=== PATIENT | female | born 1935 | race Caucasian/White ===

== ENCOUNTER 2022-09-01 15:18 | Inpatient (IN) | payer MEDICARE, OTHER ==
[~2022-09-01] VITALS: Ht 157.5 cm; Wt 45.4 kg
[2022-09-01] MEDS ORDERED: IV NORMAL SALINE 1000 ML BAG IV ONE ×2 (15:30→16:45)
[2022-09-01 16:02] LABS: HEMATOCRIT 31.2 % (31.2-41.9); MEAN CORPUSCULAR HEMOGLOBIN 30.4 uug (24.7-32.8); MEAN CORPUSCULAR VOLUME 92.4 fL (75.5-95.3); PLATELET COUNT (AUTO) 213 K/uL (179-408)
[2022-09-01] MEDS ORDERED: CARBIDOPA-LEVO PO (16:06)
[2022-09-01 16:26] LABS: CARBON DIOXIDE 29 mmol/L (21-32); CHLORIDE 100 mmol/L (98-107); CREATININE 1.4 mg/dL (0.6-1.3); GLUCOSE 142 mg/dL (74-106); POTASSIUM 4.4 mmol/L (3.5-5.1); UREA NITROGEN, BLOOD 30 mg/dL (7-18)
[2022-09-01 16:35] LABS: *BILIRUBIN,URIN NEGATIVE (NEGATIVE); *BLOOD, URINE NEGATIVE (NEGATIVE); *CLARITY,URINE CLEAR (CLEAR); *COLOR,URINE YELLOW (YELLOW); *KETONES,URINE TRACE (NEGATIVE); LEUKOCYTE ESTERASE ,URINE NEGATIVE (NEGATIVE); NITRITE, URINE NEGATIVE (NEGATIVE); UGLUCOSE NEGATIVE (NEGATIVE)
[2022-09-01 16:39] LABS: ALANINE AMINOTRANSFERASE 12 U/L (14-59); ALKALINE PHOSPHATASE 107 U/L (50-136); ASPARTATE AMINOTRANSFERASE 23 U/L (15-37); BILIRUBIN,DIRECT 0.1 mg/dL (0.0-0.2); BILIRUBIN,TOTAL 0.6 mg/dL (0.2-1.0); TOTAL PROTEIN, SERUM 6.7 g/dL (6.4-8.2)
[2022-09-01 16:50] LABS: BACTERIA,URINE FEW /HPF (NONE SEEN); RBC,URINE 0-3 /HPF (0-3)
[2022-09-01 16:51] LABS: SQUAMOUS EPITHELIAL CELL,UR MODERATE /HPF (NONE SEEN)
[2022-09-01] MEDS ORDERED: CEFTRIAXONE 1 G VIAL ONE (16:56)
[2022-09-01] MEDS ORDERED: CEFTRIAXONE 1 G in IV DEXTROSE 5% 50 ML IV ONE (17:00)
[2022-09-01 19:33] VITALS: BP 150/82
[2022-09-01] MEDS ORDERED: CARBIDOPA/LEVODOPA 25-100MG TABLET PO SCH (21:30)
[2022-09-01] MEDS ORDERED: IV LACTATED RINGERS SOLUTION 1,000 ML IV PRN (21:45)
[2022-09-01] MEDS ORDERED: ACETAMINOPHEN 325 MG TABLET PO PRN (21:45)
[2022-09-01] MEDS ORDERED: ONDANSETRON 4 MG/2 ML VIAL IV PRN (21:45)
[2022-09-01] MEDS ORDERED: REMEDY ESSENTIAL ZINC PASTE 113 GM TP PRN (21:45)
[2022-09-02 00:26] VITALS: BP 144/71
[2022-09-02] MEDS: CARBIDOPA/LEVODOPA 25-100MG TABLET PO SCH ×3 (03:13→12:15)
[2022-09-02 07:02] LABS: HEMATOCRIT 29.3 % (31.2-41.9); MEAN CORPUSCULAR HEMOGLOBIN 31.1 uug (24.7-32.8); MEAN CORPUSCULAR VOLUME 92.2 fL (75.5-95.3); PLATELET COUNT (AUTO) 90 K/uL (179-408)
[2022-09-02 07:17] LABS: BILIRUBIN,TOTAL 0.4 mg/dL (0.2-1.0); CREATININE 1.1 mg/dL (0.6-1.3); MAGNESIUM 1.5 mg/dL (1.8-2.4); PHOSPHOROUS 2.9 mg/dL (2.5-4.9); TOTAL PROTEIN, SERUM 6.3 g/dL (6.4-8.2)
[2022-09-02 07:24] LABS: THYROID STIMULATING HORMONE 2.156 mIU/mL (0.358-3.740)
--- NOTE | 2022-09-02 09:50 | NUR ---
PATIENTS HERE AND AT THE BEDSIDE TO SEE HIS AND PATIENT IS EXPRESSING DESIRE TO GO HOME AT THIS TIME INFORMED HIM THAT THE DOCTOR IS COMING TO SEE HER SOON BUT IF HE IS NOT WILLING TO WAIT HAS THE OPTION OF SIGNING HER OUT AGAINST MEDICAL ADVISE BUT HE STATED THAT HE WILL WAIT FOR THE DOCTOR.
[2022-09-02] MEDS: MAGNESIUM SULFATE/D5W 100 ML IV SCH ×2 (09:54→10:54)
--- NOTE | 2022-09-02 11:15 | NUR ---
DR TANGELA OTTO HERE SEEN PATIENT WITH ORDER FOR ORTHOSTATIC BLOOD PRESSURE AND NOTED.
[2022-09-02 11:18] VITALS: BP 107/50
[2022-09-02 11:41] VITALS: BP_SYST 107; BP_SYST 112; BP_SYST 129; BP_DIAS 50; BP_DIAS 61; BP_DIAS 66
--- NOTE | 2022-09-02 14:15 | NUR ---
D/C PLANNING PATIENT WILL BE DISCHARGED HOME TODAY WILL PREP HER FOR DISCHARGE.
--- NOTE | 2022-09-02 15:00 | NUR ---
PATIENT DISCHARGED PICKED UP BY HER [facility] IN SATISFACTORY CONDITION WITH ALL HER DISCHARGE INSTRUCTIONS AND WAS INSTRUCTED TO CALL HER PRIMARY DOCTOR FOR A FOLLOW UP APPOINTMENT WITHIN THE NEXT ONE TO TWO WEEKS AND HE EXPRESSED UNDERSTANDING
[2022-09-02] MEDS ORDERED: CEFTRIAXONE 1 G in IV DEXTROSE 5% 50 ML IV SCH (17:00)
== END 2022-09-02 15:00 | disposition home or self-care (01) | DRG 640 ==
LOC: ER 15:18 → TELE3 17:00 → MEDSURG3 09-02 08:30
PROVIDERS: ADMIT Nurse Practitioner Acute Care; ATTEND Nurse Practitioner Acute Care
PROC: 05H533Z Insertion of Infusion Device into Right Subclavian Vein, Percutaneous Approach (ICD-10-PCS; principal; 2022-09-02)
PROC: B546ZZA Ultrasonography of Right Subclavian Vein, Guidance (ICD-10-PCS; 2022-09-02)
DX: E86.0 Dehydration (principal); G93.41 Metabolic encephalopathy; N17.0 Acute kidney failure with tubular necrosis; Z68.1 Body mass index [BMI] 19.9 or less, adult; E44.0 Moderate protein-calorie malnutrition; E87.1 Hypo-osmolality and hyponatremia; I10 Essential (primary) hypertension; H40.9 Unspecified glaucoma; G20 Parkinson's disease; E86.1 Hypovolemia; D64.9 Anemia, unspecified; I95.9 Hypotension, unspecified; Z20.822 Contact with and (suspected) exposure to COVID-19
CPT/HCPCS: 36415; 51702; 70450; 71045; 83605; 83735; 84100; 84443; 84484; 85025; 85730; 87040; 93005; A4663; G0378; J0696; J3475; J7040